=== PATIENT | female | born 1960 | race Caucasian/White ===

== ENCOUNTER 2021-11-15 08:32 | Outpatient (CLI) | payer MEDICARE, SELFPAY ==
--- NOTE | ~2021-11-15 | NM_ITS ---
EXAMINATION: NM stephanie stress w perfusion DATE: 11/15/2021 11:16 INDICATION: Dyspnea TECHNIQUE: Rest images were obtained following intravenous administration of 9.1 mCi Tc99m tetrofosmi n (Myoview). The patient was infused intravenously with Lexiscan (Regadenoson). Then, 29.6 mCi Tc99m tetrofosmin (Myoview) was administered intravenously, and stress images were obtained. Data was recon structed into short axis and horizontal and vertical long axis SPECT images. Gated SPECT images were also obtained. COMPARISON: None. FINDINGS: There is no definite reversible or fixed perfusion abnormality to suggest ischemia or infar ction. There is normal left ventricular chamber size, wall motion and ejection fraction. Left ventr icular ejection fraction measures 60%. IMPRESSION: 1. Normal myocardial perfusion at rest and during stress. 2. Left ventricular ejection fraction measuring 60%. Reviewed, dictated and finalized at location A.
--- NOTE | 2021-11-15 08:53 | ECHO_ITS ---
Patient Info Name: Ananya Banuelos Age: 61 years : 1960 Gender: Female Ht: 62 in Wt: 105 lbs BSA: 1.44 m2 HR: 73 bpm BP: 185 / 103 mmHg Technical Quality: Fair Exam Date: 11/15/2021 9:10 AM Exam Location: [facility] Pulmonary Patient Status: Outpatient Admit Date: 11/15/2021 Staff Ordering Physician: Jarrett Mahmood DO Software Development Coordinator: Yanet Ku RDCS Attending Provider: Jarrett Mahmood DO Referring Physician: Timoteo VOGT; Exam Type: CA echo doppler color flow Study Info Indications - CHANEY Complete two-dimensional, color flow and Doppler transthoracic echocardiogram is performed. Summary 1. Complete two-dimensional, color flow and Doppler transthoracic echocardiogram is performed. 2. Left ventricular chamber dimension is normal. 3. Left ventricular systolic function is normal, estimated at 55-60%. 4. The left ventricular diastolic function is grade I diastolic dysfunction. 5. E/e' 7 is not elevated. 6. Left atrial chamber dimension is mildly enlarged. 7. There is trace mitral valve regurgitation. 8. There is trace tricuspid valve regurgitation. 9. No pulmonary hypertension, estimated pulmonary arterial systolic pressure is 38 mmHg. Left Ventricle E/e' 7 is not elevated. Left ventricular chamber dimension is normal. Left ventricular systolic function is normal, estimated at 55-60%. The left ventricular diastolic function is grade I diastolic dysfunction. Right Ventricle Right ventricular systolic function is normal and with normal TAPSE 2.0 cm. Right ventricular chamber dimension is normal. Left Atria Left atrial chamber dimension is mildly enlarged. Right Atria Right atrial chamber dimension is normal. Aortic Valve The aortic valve is trileaflet. There is no aortic valve stenosis. There is no aortic valve regurgitation. Pulmonic Valve There is no pulmonic regurgitation. Mitral Valve There is no mitral valve stenosis. There is trace mitral valve regurgitation. Tricuspid Valve There is trace tricuspid valve regurgitation. No pulmonary hypertension, estimated pulmonary arterial systolic pressure is 38 mmHg. Pericardium/Pleural There is no pericardial effusion. Inferior Vena Cava Normal inferior vena cava with >50% collapse upon inspiration consistent with normal right atrial pressure, 5 mmHg. Aorta The aortic root size at the sinus of Valsalva is normal. Left Ventricular Outflow Tract Name Value Normal LVOT 2D LVOT Diameter 2.0 cm LVOT Doppler LVOT Peak Gradient 4 mmHg LVOT Mean Gradient 2 mmHg LVOT VTI 19 cm LVOT VTI/AV VTI Ratio 1.1 LVOT Stroke Volume 56 ml LVOT CO 10.9 l/min LVOT CI 7.5 l/min/m2 Pulmonic Valve Name Value Normal PV Doppler
--- NOTE | 2021-11-15 08:53 | EST_ITS ---
Patient Info Name: Ananya Banuelos Age: 61 years : 1960 Gender: Female Ht: 62 in Wt: 105 lbs BSA: 1.44 m2 HR: 66 bpm BP: 130 / 80 mmHg Heart Rhythm: Sinus Rhythm Exam Date: 11/15/2021 10:27 AM Exam Location: [facility] Stress Patient Status: Outpatient Admit Date: 11/15/2021 Staff Ordering Physician: Jarrett Mahmood DO Attending Provider: Jarrett Mahmood DO Exercise Technologist: Kelsey Hall CT Exercise Physician: Jarrett Mahmood DO Exam Type: CA stress stephanie w NM Study Info Indications R06.00 - Dyspnea, unspecified A regadenoson stress test was performed. Summary 1. 1. Negative lexiscan stress test for ischemic ST changes by ECG criteria. 2. 2. Stable hemodynamics throughout the test. 3. 3. Nuclear scan to follow and will be reported separately. Please correlate with it. 4. 4. Patient informed of the above results. Protocol: Lexiscan Stress ECG Details Stage: REST Duration (min): 1 min : 1 sec HR (bpm): 71 SBP (mmHg): 130 DBP (mmHg): 80 Stage: REST Duration (min): 8 min : 46 sec HR (bpm): 68 SBP (mmHg): 130 DBP (mmHg): 80 Stage: STAGE 1 Duration (min): 0 min : 59 sec HR (bpm): 94 SBP (mmHg): 153 DBP (mmHg): 89 Stage: RECOVERY Duration (min): 1 min : 0 sec HR (bpm): 104 SBP (mmHg): 153 DBP (mmHg): 89 Stage: RECOVERY Duration (min): 2 min : 0 sec HR (bpm): 97 SBP (mmHg): 153 DBP (mmHg): 89 Stage: RECOVERY Duration (min): 2 min : 59 sec HR (bpm): 97 SBP (mmHg): 160 DBP (mmHg): 89 Rest HR: 68 bpm Peak HR: 104 bpm Rest Sys BP: 130 mmHg Peak Sys BP: 160 mmHg Max Pred HR: 157 bpm % Max Pred HR: 66 % Target HR: 133 bpm Max RPP: 16,640 bpm*mmHg Termination Reason: Completed protocol Cardiac Symptoms: Shortness of breath Total Time: 1 min : 0 sec Rest Olvera BP: 80 mmHg Peak Olvera BP: 89 mmHg Total Dose: 0.4 mg Resting ECG Sinus rhythm. Stress ECG No ST changes. Arrhythmias None. Report Signatures
== END 2021-11-15 08:33 | disposition home or self-care (01) ==
LOC: ANHCARD 08:33
PROVIDERS: PCP Internal Medicine; Visit Provider Internal Medicine Cardiovascular Disease
DX: R06.00 Dyspnea, unspecified (principal)
CPT/HCPCS: 78452; 93017; 93306; A9502; J2785